=== PATIENT | male | born 1955 | race Caucasian/White ===

== ENCOUNTER 2017-07-05 14:53 | Outpatient (CLI) | payer OTHER ==
--- NOTE | 2017-07-06 09:34 | XRAY Preliminary Report ---
Exam: XR CHEST 2 VIEW PA/LAT IMPRESSION: No radiographically apparent acute abnormality in the chest. No significant change from p rior. [facility] SITE ID: [id number]
--- NOTE | 2017-07-06 09:37 | XRAY Report ---
EXAM: CHEST RADIOGRAPHY EXAM DATE: 07/05/2017 03:10 PM. CLINICAL HISTORY: COUGH FOR 1 MO., NEW ONSET OF DIZZINESS, PAST 2. COMPARISON: 04/23/2014. TECHNIQUE: 2 views. FINDINGS: Lungs/Pleura: No focal opacities evident. No pleural effusion. No pneumothorax. Normal volumes. Mediastinum: Heart and mediastinal contours are unremarkable. Other: None. IMPRESSION: No radiographically apparent acute abnormality in the chest. No significant change from p rior. [facility] Referring Provider Line: [phone] SITE ID: [id number]
== END 2017-07-05 14:54 | disposition home or self-care (01) ==
LOC: DI 14:53
PROVIDERS: ATTEND Naturopath
DX: R05 Cough (principal); R42 Dizziness and giddiness
CPT/HCPCS: 71020

== ENCOUNTER 2017-10-03 15:32 | Outpatient (CLI) | payer OTHER ==
--- NOTE | 2017-10-04 11:14 | XRAY Report ---
LUMBAR SPINE: 10/03/2017 COMPARISON: Abdomen and pelvis CT 08/08/2015. INDICATION: Low back pain. Fall. TECHNIQUE: Five views. FINDINGS: Normal alignment. No evidence of acute fracture. There is mild disk space narrowing at L3-L4 and L4-L5. There are small anterior osteophytes. IMPRESSION: MILD LUMBAR SPONDYLOSIS. NO APPRECIABLE CHANGE. TD: 10/04/2017 11:13 [facility]
== END 2017-10-03 15:33 | disposition home or self-care (01) ==
LOC: DI.S 15:32
PROVIDERS: ATTEND Family Medicine
DX: M47.896 Other spondylosis, lumbar region (principal)
CPT/HCPCS: 72110

== ENCOUNTER 2017-11-26 08:16 | Outpatient (CLI) | payer OTHER ==
[2017-11-26 10:56] LABS: HB2 TOTAL 15.3 g/dL; HEMOGLOBIN A1C 0.6 g/dL; HEMOGLOBIN A1C % 5.7 % (4.6-6.2)
[2017-11-26 11:02] LABS: THYROID STIMULATING HORMONE 1.81 uIU/mL (0.34-5.60)
[2017-11-26 11:04] LABS: FREE T4 (FREE THYROXINE) 0.72 ng/dL (0.58-1.64)
[2017-11-26 11:07] LABS: TOTAL T3 1.02 ng/mL (0.87-1.78)
[2017-11-30 17:57] LABS: T3 REVERSE 9 ng/dL (8-25)
== END 2017-11-26 08:17 | disposition home or self-care (01) ==
LOC: LAB.F 08:16
PROVIDERS: ATTEND Family Medicine
DX: E03.9 Hypothyroidism, unspecified (principal); R53.83 Other fatigue; R73.09 Other abnormal glucose
CPT/HCPCS: 36415; 82626; 83036; 84439; 84443; 84480; 84481; 84482

== ENCOUNTER 2019-06-25 07:27 | Outpatient (CLI) | payer MEDICARE ==
[2019-06-25 10:24] LABS: BASOPHILS % (AUTO) 0.4 %; EOSINOPHILS # (AUTO) 0.1 10^3/uL (0.0-0.7); EOSINOPHILS % (AUTO) 1.1 %; HGB - HEMOGLOBIN 14.1 g/dL (14.0-18.0); LYMPHOCYTES # (AUTO) 1.5 10^3/uL (1.5-3.5); LYMPHOCYTES % (AUTO) 27.3 %; MEAN CORPUSCULAR HEMOGLOBIN 29.1 pg (27.0-31.0); MEAN CORPUSCULAR HGB CONC 32.4 g/dL (32.0-36.0); MEAN CORPUSCULAR VOLUME 89.9 fL (80.0-94.0); MEAN PLATELET VOLUME 10.2 fL (7.4-11.4); MONOCYTES # (AUTO) 0.4 10^3/uL (0.0-1.0); MONOCYTES % (AUTO) 7.1 %; NEUTROPHILS # (AUTO) 3.6 10^3/uL (1.5-6.6); NEUTROPHILS % (AUTO) 63.9 %; PLT - PLATELET COUNT 270 10^3/uL (130-450); RED BLOOD COUNT 4.84 10^6/uL (4.70-6.10); RED CELL DISTRIBUTION WIDTH 13.4 % (12.0-15.0); WHITE BLOOD COUNT 5.7 x10^3/uL (4.8-10.8)
[2019-06-25 10:42] LABS: ALBUMIN 4.2 g/dL (3.2-5.5); ALBUMIN/GLOBULIN RATIO 1.5 (1.0-2.2); ALKALINE PHOSPHATASE 64 IU/L (42-121); ALT ALANINE AMINOTRANSFERASE 28 IU/L (10-60); AST ASPARTATE AMINOTRANSFERASE 22 IU/L (10-42); BILIRUBIN,TOTAL 0.7 mg/dL (0.2-1.0); BUN - BLOOD UREA NITROGEN 21 mg/dL (6-20); CALCIUM 9.1 mg/dL (8.5-10.3); CARBON DIOXIDE - CO2 29 mmol/L (21-32); CHLORIDE 107 mmol/L (101-111); CHOL/HDL RATIO 3.9 (<5.0); CHOLESTEROL 251 mg/dL; CRP HIGH SENSITIVITY 4.2 mg/L; GFR - MDRD 75 (>89); GLUCOSE 102 mg/dL (70-100); HDL CHOLESTEROL 64 mg/dL; LDL CHOLESTEROL,CALCULATED 163 mg/dL; LDL/HDL RATIO 2.5 (<3.6); SODIUM 142 mmol/L (135-145); VLDL CHOLESTEROL 24 mg/dL
[2019-06-25 10:53] LABS: FREE T4 (FREE THYROXINE) 0.85 ng/dL (0.58-1.64); THYROID STIMULATING HORMONE 2.2 uIU/mL (0.34-5.60)
[2019-06-25 10:57] LABS: TOTAL T3 0.97 ng/mL (0.87-1.78)
[2019-06-25 10:59] LABS: FERRITIN 192.9 ng/mL (23.9-336.2)
[2019-06-25 16:36] LABS: HB2 TOTAL 14.3 g/dL; HEMOGLOBIN A1C 0.58 g/dL; HEMOGLOBIN A1C % 5.9 % (4.6-6.2)
== END 2019-06-25 07:28 | disposition home or self-care (01) ==
LOC: LAB.S 07:27
PROVIDERS: ATTEND Family Medicine
DX: Z00.00 Encounter for general adult medical examination without abnormal findings (principal); E03.9 Hypothyroidism, unspecified; R53.83 Other fatigue; R73.03 Prediabetes; E55.9 Vitamin D deficiency, unspecified; E34.9 Endocrine disorder, unspecified
CPT/HCPCS: 36415; 80053; 80061; 82306; 82626; 82728; 83036; 83090; 83721; 84439; 84443; 84480; 84481; 84482; 85025; 86141

== ENCOUNTER 2020-04-11 14:47 | Outpatient (CLI) | payer MEDICARE ==
[2020-04-11 20:15] LABS: PSA FREE 0.47 ng/mL (0.16-2.81)
[2020-04-11 20:16] LABS: PSA TOTAL 2.53 ng/mL (0.000-2.000)
== END 2020-04-11 14:48 | disposition home or self-care (01) ==
LOC: LAB.S 14:47
PROVIDERS: ATTEND Family Medicine
DX: R36.1 Hematospermia (principal)
CPT/HCPCS: 36415; 84153; 84154

== ENCOUNTER 2020-05-13 08:30 | Outpatient (CLI) | payer MEDICARE | END 2020-05-13 08:31 | disposition home or self-care (01) | LOC: COV 08:30 | PROVIDERS: ATTEND Family Medicine | DX: Z20.828 Contact with and (suspected) exposure to other viral communicable diseases (principal) ==

== ENCOUNTER 2020-07-27 07:41 | Day surgery (SDC) | payer MEDICARE ==
[2020-07-27] MEDS ORDERED: LACTATED RINGERS 1,000 ML IV ONE ×2 (07:51→09:27)
[2020-07-27] MEDS ORDERED: MIDAZOLAM 2 MG/2 ML VIAL ONE ×3 (08:49→09:15)
[2020-07-27] MEDS ORDERED: fentaNYL 250 MCG/5 ML VIAL ONE (08:50)
[2020-07-27 09:55] VITALS: BP 99/70
--- OUTSIDE RECORDS SUMMARY | 2020-08-03 00:31 | EXTERNAL MEDICAL SUMMARY RPT | Continuity of Care Document ---
:1955 Demographics Phone Unavailable Preferred Language Unknown Marital Status Unknown Hindu Affiliation Unknown Race Unknown Ethnic Group Unknown Author Organization Industry Address [address] [phone] Phone Care Team Providers Name Role Phone [place] Unavailable Unavailable Allergies date description facility [facility] No Known Drug Allergies [facility] Results test status date ordered by attending specimen maeve e null F 2020-05-13 LANG.99 [facility] [place] 05-13 15:52:00 08:30:00 facility observation status value reference units lab abnor mal line notes range code [facility] NEGATIVE unknown [facility] - Report scanned to Patient' s EMR. Testing perform[facility] at [facility] History date description facility [id number]
== END 2020-07-27 07:42 | disposition home or self-care (01) ==
LOC: SDS 07:41
PROVIDERS: ATTEND Surgery
PROC: 0DBP8ZZ Excision of Rectum, Via Natural or Artificial Opening Endoscopic (ICD-10-PCS; principal; 2020-07-27 08:45)
DX: Z12.11 Encounter for screening for malignant neoplasm of colon (principal); K62.1 Rectal polyp; K64.8 Other hemorrhoids
CPT/HCPCS: 45385; J3010; J7120; 88305

== ENCOUNTER 2020-09-19 23:47 | Outpatient (CLI) | payer MEDICARE | END 2020-09-19 23:59 | disposition EMS.NT | LOC: EMS 23:47 | DX: R06.02 Shortness of breath (principal); R06.4 Hyperventilation; R45.83 Excessive crying of child, adolescent or adult ==

== ENCOUNTER 2020-09-23 16:48 | Outpatient (CLI) | payer MEDICARE ==
--- NOTE | 2020-09-23 17:09 | XRAY Report ---
PROCEDURE: Knee 3 View RT INDICATIONS: RIGHT KNEE PAIN TECHNIQUE: 3 views of the right knee(s) were acquired. COMPARISON: None. FINDINGS: Bones: No fractures or dislocations. Mild medial femoral tibial compartment joint space narrowing i s seen. No suspicious bony lesions. Soft tissues: No joint effusion. No suspicious soft tissue calcifications. IMPRESSION: Mild medial femoral tibial compartment osteoarthritis. No right knee fracture or disloca tion. No joint effusion. Reviewed by: Jimmy Lee MD on 09/23/2020 5:08 PM PST Approved by: Jimmy Lee MD on 09/23/2020 5:08 PM PST Station ID: [id number]
== END 2020-09-23 16:49 | disposition home or self-care (01) ==
LOC: DI.S 16:48
PROVIDERS: ATTEND Family Medicine
DX: M25.561 Pain in right knee (principal); M17.11 Unilateral primary osteoarthritis, right knee

== ENCOUNTER 2022-12-03 07:37 | Outpatient (CLI) | payer MEDICARE ==
[2022-12-03 14:41] LABS: BASOPHILS % (AUTO) 0.5 %; EOSINOPHILS # (AUTO) 0.1 10^3/uL (0.0-0.7); EOSINOPHILS % (AUTO) 1.8 %; HCT - HEMATOCRIT 45.4 % (42.0-52.0); HGB - HEMOGLOBIN 14.5 g/dL (14.0-18.0); LYMPHOCYTES # (AUTO) 1.8 10^3/uL (1.5-3.5); LYMPHOCYTES % (AUTO) 30.1 %; MEAN CORPUSCULAR HGB CONC 31.9 g/dL (32.0-36.0); MEAN CORPUSCULAR VOLUME 90.8 fL (80.0-94.0); MEAN PLATELET VOLUME 10.3 fL (7.4-11.4); MONOCYTES # (AUTO) 0.4 10^3/uL (0.0-1.0); NEUTROPHILS # (AUTO) 3.6 10^3/uL (1.5-6.6); NEUTROPHILS % (AUTO) 60.4 %; PLT - PLATELET COUNT 253 10^3/uL (130-450); RED CELL DISTRIBUTION WIDTH 14.1 % (12.0-15.0)
[2022-12-03 15:05] LABS: ALBUMIN 3.9 g/dL (3.2-5.5); ALBUMIN/GLOBULIN RATIO 1.3 (1.0-2.2); ALKALINE PHOSPHATASE 63 IU/L (42-121); ALT ALANINE AMINOTRANSFERASE 31 IU/L (10-60); AST ASPARTATE AMINOTRANSFERASE 28 IU/L (10-42); BILIRUBIN,TOTAL 0.6 mg/dL (0.2-1.0); BUN - BLOOD UREA NITROGEN 28 mg/dL (6-20); CARBON DIOXIDE - CO2 27 mmol/L (21-32); CHLORIDE 106 mmol/L (101-111); CHOLESTEROL 274 mg/dL; GFR - MDRD 74 (>89); GLUCOSE 106 mg/dL (70-100); HDL CHOLESTEROL 69 mg/dL; LDL CHOLESTEROL,CALCULATED 167 mg/dL; LDL/HDL RATIO 2.4 (<3.6); POTASSIUM 4.4 mmol/L (3.5-5.0); SODIUM 139 mmol/L (135-145); TOTAL PROTEIN 6.9 g/dL (6.7-8.2); TRIGLYCERIDES 191 mg/dL; VLDL CHOLESTEROL 38 mg/dL
[2022-12-03 15:08] LABS: PSA TOTAL 3.938 ng/mL (0.000-2.000)
[2022-12-03 15:15] LABS: THYROID STIMULATING HORMONE 2.09 uIU/mL (0.34-5.60)
[2022-12-03 15:18] LABS: FREE T3 3.42 pg/mL (2.5-3.9)
[2022-12-03 15:19] LABS: FREE T4 (FREE THYROXINE) 0.72 ng/dL (0.58-1.64)
[2022-12-03 15:23] LABS: FERRITIN 144.9 ng/mL (23.9-336.2)
[2022-12-03 16:24] LABS: PSA FREE 0.665 ng/mL (0.16-2.81)
[2022-12-03 19:36] LABS: ESTIMATED AVERAGE GLUCOSE 123 mg/dL (70-100); HEMOGLOBIN A1c% 5.9 % (4.27-6.07)
== END 2022-12-03 07:38 | disposition home or self-care (01) ==
LOC: LAB.S 07:37
PROVIDERS: ATTEND Family Medicine
DX: E78.5 Hyperlipidemia, unspecified (principal); R73.09 Other abnormal glucose; R53.83 Other fatigue; E55.9 Vitamin D deficiency, unspecified; E03.9 Hypothyroidism, unspecified; N40.1 Benign prostatic hyperplasia with lower urinary tract symptoms
CPT/HCPCS: 36415; 80053; 80061; 82306; 82626; 82728; 83036; 83090; 83721; 84153; 84154; 84439; 84443; 84480; 84481; 85025; 86141; 86850; 86900; 86901

== ENCOUNTER 2023-06-07 07:32 | Outpatient (CLI) | payer MEDICARE ==
[2023-06-07 14:28] LABS: BASOPHILS % (AUTO) 0.6 %; EOSINOPHILS # (AUTO) 0.1 10^3/uL (0.0-0.7); EOSINOPHILS % (AUTO) 1.3 %; HCT - HEMATOCRIT 43.5 % (42.0-52.0); HGB - HEMOGLOBIN 13.5 g/dL (14.0-18.0); LYMPHOCYTES # (AUTO) 1.6 10^3/uL (1.5-3.5); LYMPHOCYTES % (AUTO) 30.4 %; MEAN CORPUSCULAR HEMOGLOBIN 28.5 pg (27.0-31.0); MEAN PLATELET VOLUME 10.6 fL (7.4-11.4); MONOCYTES # (AUTO) 0.4 10^3/uL (0.0-1.0); MONOCYTES % (AUTO) 7.2 %; NEUTROPHILS # (AUTO) 3.2 10^3/uL (1.5-6.6); NEUTROPHILS % (AUTO) 60.1 %; PLT - PLATELET COUNT 242 10^3/uL (130-450); RED BLOOD COUNT 4.73 10^6/uL (4.70-6.10); RED CELL DISTRIBUTION WIDTH 14.1 % (12.0-15.0); WHITE BLOOD COUNT 5.3 x10^3/uL (4.8-10.8)
[2023-06-07 17:01] LABS: THYROID STIMULATING HORMONE 1.65 uIU/mL (0.34-5.60)
[2023-06-07 17:02] LABS: ALBUMIN 4.2 g/dL (3.2-5.5); ALKALINE PHOSPHATASE 62 IU/L (42-121); ALT ALANINE AMINOTRANSFERASE 26 IU/L (10-60); AST ASPARTATE AMINOTRANSFERASE 21 IU/L (10-42); BILIRUBIN,TOTAL 0.4 mg/dL (0.2-1.0); BUN - BLOOD UREA NITROGEN 33 mg/dL (6-20); CALCIUM 9.2 mg/dL (8.5-10.3); CARBON DIOXIDE - CO2 28 mmol/L (21-32); CHLORIDE 107 mmol/L (101-111); CHOL/HDL RATIO 4.1 (<5.0); CHOLESTEROL 249 mg/dL; CREATININE 1.1 mg/dL (0.6-1.3); GFR - MDRD 66 (>89); GLUCOSE 111 mg/dL (74-104); HDL CHOLESTEROL 61 mg/dL; LDL CHOLESTEROL,CALCULATED 150 mg/dL; LDL/HDL RATIO 2.5 (<3.6); POTASSIUM 4.4 mmol/L (3.5-4.5); SODIUM 139 mmol/L (135-145); TOTAL PROTEIN 6.3 g/dL (6.4-8.9); TRIGLYCERIDES 191 mg/dL (48-352); VLDL CHOLESTEROL 38 mg/dL
[2023-06-07 17:08] LABS: FERRITIN 134.6 ng/mL (23.9-336.2)
[2023-06-07 17:09] LABS: PSA TOTAL 3.168 ng/mL (0.000-2.000)
[2023-06-07 18:23] LABS: ESTIMATED AVERAGE GLUCOSE 120 mg/dL (70-100); HEMOGLOBIN A1c% 5.8 % (4.27-6.07)
[2023-06-08 07:09] LABS: INSULIN 20.6 uIU/mL (2.6-24.9)
[2023-06-08 08:09] LABS: VITAMIN D 25-HYDROXY 31.8 ng/mL (30.0-100.0)
== END 2023-06-07 07:33 | disposition home or self-care (01) ==
LOC: LAB.S 07:32
PROVIDERS: ATTEND Family Medicine
DX: R73.03 Prediabetes (principal); E78.5 Hyperlipidemia, unspecified; R79.89 Other specified abnormal findings of blood chemistry; N40.1 Benign prostatic hyperplasia with lower urinary tract symptoms; E55.9 Vitamin D deficiency, unspecified; R53.83 Other fatigue
CPT/HCPCS: 36415; 80053; 80061; 82306; 82626; 82728; 83036; 83090; 83525; 83721; 84153; 84154; 84439; 84443; 84480; 84481; 84482; 85025; 86141